=== PATIENT | male | born 1970 | race Caucasian/White ===

== ENCOUNTER 2016-08-31 15:53 | Emergency (ER) | payer BC, OTHER ==
[~2016-08-31] VITALS: Ht 182.9 cm; Wt 99.3 kg
[2016-08-31 16:04] VITALS: BP_SYST 125
[2016-08-31] MEDS ORDERED: KETOROLAC TROMETHAMINE 60 MG/2 ML VIAL IM ONE (16:45)
== END 2016-08-31 17:07 | disposition home or self-care (01) ==
LOC: SED 15:53
DX: M43.6 Torticollis (principal); I10 Essential (primary) hypertension; F17.210 Nicotine dependence, cigarettes, uncomplicated
CPT/HCPCS: 96372; 99283; J1885

== ENCOUNTER 2016-09-21 00:22 | Emergency (ER) | payer BC ==
[~2016-09-21] VITALS: Ht 182.9 cm; Wt 93.4 kg
[2016-09-21 00:22] VITALS: BP_SYST 94
[2016-09-21 04:40] VITALS: BP_SYST 110
== END 2016-09-21 04:40 | disposition home or self-care (01) ==
LOC: SED 00:22
DX: M54.2 Cervicalgia (principal)
CPT/HCPCS: 99283